=== PATIENT | male | born 1985 | race Caucasian/White ===

== ENCOUNTER 2021-06-30 16:12 | Inpatient (IN) | payer OTHER ==
[~2021-06-30] VITALS: Ht 170.2 cm; Wt 80.5 kg
[2021-06-30 18:13] LABS: COVID AG,FIA SOURCE NASAL SWAB
[2021-06-30 18:23] LABS: BASOPHILS % (AUTO) 0.6 % (0.0-2.0); EOSINOPHILS % (AUTO) 1.4 % (1.0-6.0); HEMATOCRIT 41.6 % (41-53); HEMOGLOBIN 14.1 g/dL (13.5-17.5); LYMPHOCYTES # (AUTO) 1.1 K/uL (1.0-4.8); LYMPHOCYTES % (AUTO) 14.8 % (22.0-44.0); MEAN CORPUSCULAR HEMOGLOBIN 30.5 pg (26.0-34.0); MEAN CORPUSCULAR HGB CONC 33.9 G/dL (31.0-37.0); MEAN CORPUSCULAR VOLUME 90 fL (80-100); MONOCYTES # (AUTO) 0.5 K/uL (0.1-1.0); MONOCYTES % (AUTO) 7.1 % (2.0-9.0); NEUTROPHILS # (AUTO) 5.5 K/uL (1.8-7.7); NEUTROPHILS % (AUTO) 76.1 % (40.0-70.0); PLATELET COUNT (AUTO) 181 K/uL (150-450); RED BLOOD CELL COUNT(AUTO) 4.62 MIL/uL (4.50-5.90)
[2021-06-30 18:30] LABS: ANION GAP 6 mmol/L (8-16); CALCIUM, TOTAL 9.2 mg/dL (8.8-10.5); CARBON DIOXIDE 29 mmol/L (22-29); CHLORIDE 103 mmol/L (98-107); CREATININE 0.77 mg/dL (0.60-1.30); GLOMERULAR FILTR. RATE CALC > 60 mL/min (>60); GLUCOSE,RANDOM 123 mg/dL (70-110); SODIUM SERUM 138 mmol/L (136-145); UREA NITROGEN, BLOOD 9 mg/dL (7-18)
[2021-06-30 18:33] LABS: ALANINE AMINOTRANSFERASE 25 U/L (12-78); ALBUMIN 3.8 g/dL (3.4-5.0); ALKALINE PHOSPHATASE 79 U/L (46-116); ASPARTATE AMINOTRANSFERASE 23 U/L (15-37); BILIRUBIN,TOTAL 0.8 mg/dL (0.1-1.0); TOTAL PROTEIN, SERUM 7.7 g/dL (6.4-8.2)
[2021-06-30] MEDS ORDERED: IBUPROFEN 600 MG TABLET PO ONE (20:00)
[2021-06-30] MEDS ORDERED: ONDANSETRON HCL 4 MG/2 ML VIAL IVP PRN (20:15)
[2021-06-30] MEDS: LORazepam 2 MG TABLET PO PRN ×2 (20:29→22:47)
[2021-06-30 20:48] LABS: ACETAMINOPHEN < 2 mcg/mL (10-30)
[2021-06-30 21:01] VITALS: BP 115/62
[2021-06-30 21:38] LABS: AMPHET/METH SCREEN,URINE POSITIVE (NEGATIVE); BARBITURATE SCREEN, URINE NEGATIVE (NEGATIVE); BENZODIAZEPINES SCREEN,URINE NEGATIVE (NEGATIVE); CANNABINOID SCREEN,URINE POSITIVE (NEGATIVE); COCAINE SCREEN,URINE NEGATIVE (NEGATIVE); METHADONE SCREEN, URINE NEGATIVE (NEGATIVE); OPIATE SCREEN,URINE NEGATIVE (NEGATIVE)
[2021-06-30 21:53] LABS: PHENCYCLIDINE SCREEN,URINE NEGATIVE (NEGATIVE)
[2021-06-30] MEDS: ACETAMINOPHEN 325 MG TABLET PO PRN (21:56)
[2021-06-30 22:01] VITALS: BP 115/62
[2021-07-01 05:31] VITALS: BP 115/65
[2021-07-01] MEDS ORDERED: INFLUENZA VIRUS VACCINE QVS 2021-22 (6MO+)/PF 60 MCG/0.5 ML SYRINGE IM. ONE (06:30)
[2021-07-01] MEDS ORDERED: LORazepam 2 MG TABLET PO PRN (07:00)
[2021-07-01 08:11] VITALS: BP 104/62
[2021-07-01] MEDS: HEPARIN SODIUM,PORCINE 5,000 UNITS/ML VIAL SQ SCH ×2 (08:34→16:50)
[2021-07-01] MEDS ORDERED: LORazepam 2 MG TABLET PO SCH (09:00)
[2021-07-01] MEDS ORDERED: LORazepam 2 MG/ML VIAL IM PRN (13:30)
[2021-07-01 16:50] VITALS: BP 120/63
[2021-07-01] MEDS: ACETAMINOPHEN 325 MG TABLET PO PRN (18:07)
[2021-07-01 19:46] VITALS: BP 115/66
[2021-07-01] MEDS: MELATONIN 3 MG TABLET PO PRN (20:07)
[2021-07-02 04:55] VITALS: BP 115/69
[2021-07-02] MEDS: ACETAMINOPHEN 325 MG TABLET PO PRN ×2 (06:51→18:29)
[2021-07-02 07:10] LABS: ANION GAP 5 mmol/L (8-16); CALCIUM, TOTAL 8.7 mg/dL (8.8-10.5); CARBON DIOXIDE 29 mmol/L (22-29); CHLORIDE 103 mmol/L (98-107); CREATININE 0.82 mg/dL (0.60-1.30); GLOMERULAR FILTR. RATE CALC > 60 mL/min (>60); GLUCOSE,RANDOM 94 mg/dL (70-110); POTASSIUM 3.7 mmol/L (3.5-5.1); SODIUM SERUM 137 mmol/L (136-145); UREA NITROGEN, BLOOD 9 mg/dL (7-18)
[2021-07-02 07:30] VITALS: BP 102/70
[2021-07-02] MEDS: HEPARIN SODIUM,PORCINE 5,000 UNITS/ML VIAL SQ SCH ×4 (08:47→23:46)
[2021-07-02] MEDS: DOCOSANOL 10% 2 GM CREAM TP SCH ×2 (12:16→19:48)
[2021-07-02] MEDS: MELATONIN 3 MG TABLET PO PRN (19:48)
[2021-07-02 20:07] VITALS: BP 110/66
[2021-07-03 05:32] VITALS: BP 102/64
[2021-07-03] MEDS: ACETAMINOPHEN 325 MG TABLET PO PRN (06:39)
[2021-07-03] MEDS ORDERED: LORazepam 1 MG TABLET PO PRN (07:00)
[2021-07-03 08:00] VITALS: BP 111/77
[2021-07-03] MEDS: DOCOSANOL 10% 2 GM CREAM TP SCH (08:09)
[2021-07-03] MEDS: HEPARIN SODIUM,PORCINE 5,000 UNITS/ML VIAL SQ SCH (08:09)
[2021-07-03] MEDS ORDERED: LORazepam 1 MG TABLET PO SCH (09:00)
[2021-07-03] MEDS ORDERED: DOCO2CRE4 TP ×2 (13:33→13:35)
[2021-07-03] MEDS ORDERED: BACTDSB PO ×2 (13:34→13:35)
[2021-07-04] MEDS ORDERED: LORazepam 1 MG TABLET PO PRN (07:00)
== END 2021-07-03 14:47 | DRG 93 ==
LOC: EMS 16:14 → 6S 19:00
PROVIDERS: ADMIT Internal Medicine; ATTEND Internal Medicine
DX: G92 Toxic encephalopathy (principal); F19.10 Other psychoactive substance abuse, uncomplicated; R73.9 Hyperglycemia, unspecified; K75.9 Inflammatory liver disease, unspecified; B00.1 Herpesviral vesicular dermatitis; L73.9 Follicular disorder, unspecified; Z20.822 Contact with and (suspected) exposure to COVID-19; Z79.899 Other long term (current) drug therapy
CPT/HCPCS: 80048; 80053; 85025; 99285; G0480; G0481; J1644